=== PATIENT | female | born 1960 | race Caucasian/White ===

== ENCOUNTER 2019-03-19 05:26 | Inpatient (IN) | payer BC, OTHER ==
[2019-03-16 12:15] VITALS: BMI 21.5
[~2019-03-19] VITALS: Ht 157.5 cm; Wt 53.3 kg
[2019-03-19] VITALS (39 sets, daily range): BP systolic 69–141; BP diastolic 56–76; PULSE 54–77; RESP 14–27; Ht 157.5 cm; Wt 53.3 kg
[~2019-03-19 05:26] MED LIST: BUPIVACAINE 0.5% (SDV) 30 ML, morphine SULFATE (PF) 8 MG, EPINEPHrine 0.3 MG, KETOROLAC... IRR SCH
--- NOTE | 2019-03-19 05:49 | HPN ---
Date/Time of Note Date/Time of Note DATE: 03/19/19 TIME: 05:48 Interval H&P Admission Note Pt. seen H&P reviewed: No system changes REBECA VIERA MD Mar 19, 2019 05:49
--- NOTE | 2019-03-19 05:50 | OPR ---
Date/Time of Note Date/Time of Note DATE: 03/19/19 TIME: 05:49 Operative Report Procedure Date: Mar 19, 2019 Preoperative Diagnosis Right hip primary arthritis Postoperative Diagnosis Right hip primary arthritis Operation/Procedure Performed 1. Right total hip arthroplasty 2. Right hip injection of PRP solution Surgeon see signature line Manager [employer] Bandar Bunn MD Anesthesia Type: general Estimated Blood Loss: 100 - 150 ml's Transfusion none Specimen None Grafts/Implants See operative note Complications none Pt Condition Post Procedure: stable Disposition: PACU Procedure Description GENERATING STATION MECHANIC SURGEON: Bandar Bunn MD was asked to be present at my request as a result of the complexity associated with this procedure including positioning of the extremity, positioning of the instrumentation and protection of the neurovascular structures. In my opinion, the assistance offered by a medical surgical tech is insufficient and he should be compensated for his time. PROCEDURE IN DETAIL: Following the administration of general endotracheal anesthesia supplemented with a spinal anesthetic, the patient was placed in the supine position. The antecubital fossa on the right was prepped and 60 cc of blood were aspirated. Under sterile conditions, the blood was passed off to the training representative from the company who prepared the PRP solution. The left lower extremity was then prepped and draped in the usual sterile fashion. A mud jack nozzle worker radiograph was obtained for preliminary limb length and femoral size as well as acetabular size. Over the right hip, a lateral incision was then made exposing the tensor fascia the fascia was incised the tensor was retracted laterally and the vessels were cauterized. The anterior capsule was then identified and prepared. A capsulectomy was then performed and the femoral head was then evaluated. Severe arthritic changes were noted. A femoral head cut was then made in the appropriate degree of version and inclination. Following dislocation, severe arthritic changes were noted with ve ry certain severe cystic changes in the femoral head. The acetabulum was then exposed and a capsulectomy and labrectomy were co mpleted. The central portion was then entered and serially reamed up to the 47 mm size. A Depuy Point Clear cup which was 48 mm, with a standard liner was then fit into position with solid fixation. A 30 mm screw was used for additional fixation. Attention was then directed to the femur, the femur was exposed and prepared. The canal was entered and serially reamed up to the size 3, High offset. The femoral canal was then thoroughly irrigated and the PRP solution was then instilled into the femoral canal. A size 3 High offset Depuy Actis stem was then inserted with solid fixation. A 32 mm, +1.5 mm femoral head, which was ceramic was then inserted. The leg was taken through full range of motion with no evident instability. In addition, radiographs revealed excellent position with reproduction of the limb lengths within a millimeter. The wound was irrigated thoroughly. The wound was then closed in layers and a Prenio for the final cover. This was watertight. Estimated blood loss was procedure was 150 cc. Postoperative radiographs will be obtained in the recovery room. REBECA VIERA MD Mar 19, 2019 05:50
--- NOTE | 2019-03-19 05:51 | PDOCDIS ---
Discharge Instructions DIAGNOSIS Discharge Diagnosis Primary hip arthritis CONDITION [id number] Patient Condition: Ucyey4t Good HOME CARE INSTRUCTIONS: [id number] Diet Instructions: [id number] Regular ACTIVITY: [id number] Activity Restrictions: [id number] Rest between Activity Keep Limb Elevated [id number] Bathing Restrictions: [id number] Shower FOLLOW UP/APPOINTMENTS Follow-up Plan 2 weeks in the office SCHOOL/WORK RELEASE May return to School/Work with: With Restrictions School/Work Release Comment: No hip extension for 6 weeks REBECA VIERA MD Mar 19, 2019 05:51
[2019-03-19] MEDS ORDERED: ARMOUR PO (06:52)
[2019-03-19] MEDS ORDERED: VALA500T PO (06:52)
[2019-03-19] MEDS ORDERED: GABA-526 PO (06:52)
[2019-03-19] MEDS ORDERED: ESTR10TA6 VG (06:52)
[2019-03-19] MEDS ORDERED: PROG200C6 PO (06:52)
[2019-03-19] MEDS ORDERED: TRAZ150T65 PO (06:52)
[2019-03-19] MEDS ORDERED: CELE200C PO (06:52)
[2019-03-19] MEDS ORDERED: ESTR1TAB23 PO (06:52)
--- NOTE | 2019-03-19 06:53 | PREAC ---
Date/Time of Note Date/Time of Note DATE: 03/19/19 TIME: 06:51 Anesthesia Eval and Record Evaluation Time Pre-Procedure Interview DATE: 03/19/19 TIME: 06:51 Age 58 Sex female NPO: 8 hrs Preoperative diagnosis Rt hip arthritis Planned procedure Rt total hip replacement Past Medical History Past Medical History: Includes Musculoskeletal: Osteoarthritis Surgery & Anesthesia Issues No known issue Meds Anticoagulation: No Beta Drew within 24 hr: No Reason Beta Drew not given: Pt. not on B-Drew Current Medications Cefazolin Sodium/ Dextrose 50 ml @ 100 mls/hr PRE-OP ONCE IVPB ; Start 03/19/19 at 08:00; Stop 03/19/19 at 08:29 Tranexamic Acid 100 ml @ 200 mls/hr Pre-op ONCE IVPB ; Start 03/19/19 at 08:00; Stop 03/19/19 at 08:29 Sodium Chloride/ Tranexamic Acid INTRA-OP ONCE IRR ; Start 03/19/19 at 09:30; Stop 03/19/19 at 09:31 Bupivacaine HCl/ Morphine Sulfate/ Epinephrine/ Ketorolac Tromethamine/ Clonidine/Sodium Chloride/ Vancomycin HCl INTRA-OP IRR ; Start 03/18/19 at 09:30; Stop 03/19/19 at 12:00 Dexamethasone (Decadron) 2 mg PREOP ONCE PO Last administered on 03/19/19at 06:23; Admin Dose 2 MG; Start 03/19/19 at 08:00; Stop 03/19/19 at 08:01 Gabapentin (Neurontin) 300 mg ONCE ONCE PO Last administered on 03/19/19at 06:23; Admin Dose 300 MG; Start 03/19/19 at 08:00; Stop 03/19/19 at 08:01 Meds reviewed: Yes Allergies Coded Allergies: Sulfa (Sulfonamide Antibiotics) (Verified Allergy, Severe, RASH, 03/18/19) Allergies Reviewed: Yes Labs/Studies Labs Reviewed: Reviewed by anesthesiologist test: N/A Studies: ECG Pre-procedure Exam Last vitals Vital Signs Date Temp Pulse Resp B/P (MAP) Pulse Ox O2 O2 Flow FiO2 Time Delivery Rate 03/19/19 99.2 57 18 103/72 99 Room Air 06:31 (82) Airway: Adequate mouth opening, Adequate thyromental dist Mallampati: Mallampati II Teeth: Normal Lung: Normal Heart: Normal ASA Physical Status ASA physical status: 2 Emergency: None Planned Anesthetic General/MAC: LMA Neuraxial: Spinal Planned Pain Management Sub-arachniod narcotics, Parenteral pain med Pre-operative Attestations Prior to commencing anesthesia and surgery, the patient was re-evaluated, there was verification of: *The patient's identity *The results of appropriate recent lab work and preoperative vital signs *The above evaluation not changing prior to induction *Anesthetic plan, risk benefits, alternative and complications discussed with patient/family; questions answered; patient/family understands, accepts and wishes to proceed. LILLIAM MARTINEZ MD Mar 19, 2019 06:53
[2019-03-19] MEDS ORDERED: ROCURONIUM 50 MG INJ ONE (07:00)
[2019-03-19] MEDS ORDERED: MIDAZOLAM 1 MG/ML 2 ML INJ ONE (07:07)
[2019-03-19] MEDS ORDERED: FENTAnyl 50 MCG/ML VIAL ONE (07:07)
[2019-03-19] MEDS ORDERED: THROMBIN 5000 UNIT VIAL ONE (07:46)
[2019-03-19] MEDS ORDERED: POLYMYXIN/BACITRACIN 1L IRRIG ONE (07:47)
[2019-03-19] MEDS ORDERED: CA CHLORIDE 10% 10 ML SYRINGE ONE (07:47)
[2019-03-19] MEDS ORDERED: TRANEXAMIC ACID 1GM/100ML(PMX) 100 ML ONE (07:52)
[2019-03-19] MEDS ORDERED: DEXAMETHASONE 1 MG TAB PO ONE (08:00)
[2019-03-19] MEDS ORDERED: GABAPENTIN 300 MG CAP PO ONE (08:00)
[2019-03-19] MEDS ORDERED: CEFAZOLIN 2 GM/50 ML (PMX) 50 ML IVPB ONE (08:00)
[2019-03-19] MEDS ORDERED: TRANEXAMIC ACID 1GM/100ML(PMX) 100 ML IVPB ONE (08:00)
[2019-03-19] MEDS ORDERED: ONDANSETRON 4 MG INJ ONE (08:46)
[2019-03-19] MEDS ORDERED: METOCLOPRAMIDE 10 MG INJ ONE (08:46)
[2019-03-19] MEDS ORDERED: PROPOFOL 20 ML ONE (08:48)
[2019-03-19] MEDS ORDERED: CEFAZOLIN 1 GM INJ ONE (08:48)
[2019-03-19] MEDS ORDERED: LIDOCAINE 2% (SDV) 5 ML INJ ONE (08:48)
[2019-03-19] MEDS: LACTATED RINGER'S 1,000 ML IV SCH ×2 (08:55→18:55)
[2019-03-19] MEDS ORDERED: NACL 0.9% 3 ML SYG IV SCH (09:00)
[2019-03-19] MEDS ORDERED: ZOLPIDEM 5 MG TAB PO PRN (09:00)
[2019-03-19] MEDS ORDERED: MAGNESIUM HYDROXIDE 30ML CUP PO PRN (09:00)
[2019-03-19] MEDS ORDERED: ONDANSETRON 4 MG INJ IV PRN ×2 (09:00→09:30)
[2019-03-19] MEDS ORDERED: oxyCODONE 5 MG TAB PO PRN (09:00)
[2019-03-19] MEDS ORDERED: ARMOUR PO SCH (09:00)
[2019-03-19] MEDS ORDERED: HYDROmorphONE 1 MG/ML SYG IV PRN (09:00)
[2019-03-19] MEDS ORDERED: DIPHENHYDRAMINE 50 MG INJ IV PRN ×2 (09:00→09:30)
[2019-03-19] MEDS ORDERED: ESTRADIOL 1 MG TAB PO SCH (09:00)
--- NOTE | 2019-03-19 09:18 | PAC ---
Date/Time of Note Date/Time of Note DATE: 03/19/19 TIME: 09:17 Post-Anesthesia Notes Post-Anesthesia Note Last documented vital signs Vital Signs Date Temp Pulse Resp B/P (MAP) Pulse Ox O2 O2 Flow FiO2 Time Delivery Rate 03/19/19 99.2 57 18 103/72 99 Room Air 06:31 (82) Activity: WNL Respiratory function: WNL Cardiovascular function: WNL Mental status: Baseline Pain reasonably controlled: Yes Hydration appropriate: Yes Nausea/Vomiting absent: Yes Comments BP:112/56, P:62, Spo2:100%, T:98,4 LILLIAM MARTINEZ MD Mar 19, 2019 09:18
[2019-03-19] MEDS ORDERED: SOD CHLORIDE 0.9% 100 ML, TRANEXAMIC ACID 3,000 MG IRR ONE ×2 (09:30)
[2019-03-19] MEDS ORDERED: FENTAnyl 50 MCG/ML VIAL IV PRN (09:30)
[2019-03-19] MEDS ORDERED: MEPERIDINE 25 MG INJ IV PRN (09:30)
[2019-03-19] MEDS ORDERED: METOCLOPRAMIDE 10 MG INJ IV PRN (09:30)
[2019-03-19] MEDS ORDERED: HYDROmorphONE 1 MG/5 ML IV SYRINGE IV PRN ×2 (09:30)
[2019-03-19] MEDS: CEFAZOLIN 1 GM/50 ML (PMX) 50 ML IVPB SCH ×2 (10:12→16:42)
[2019-03-19] MEDS: ACETAMINOPHEN 1000MG/100ML IV 100 ML IVPB SCH ×2 (10:13→16:18)
[2019-03-19] MEDS: valACYclovir 500 MG TAB PO SCH (12:02)
[2019-03-19] MEDS: SENNA/DOCUSATE NA (8.6MG/50MG) TAB PO SCH ×2 (12:04→21:23)
[2019-03-19] MEDS: DEXAMETHASONE 2 MG TAB PO SCH ×2 (12:05→17:58)
[2019-03-19] MEDS: GABAPENTIN 300 MG CAP PO SCH (12:05)
[2019-03-19] MEDS: CELECOXIB 200 MG CAP PO SCH (12:05)
[2019-03-19] MEDS: oxyCODONE 5 MG TAB PO PRN ×3 (13:30→21:23)
[2019-03-19] MEDS ORDERED: traZODone 50 MG TAB PO SCH (21:00)
[2019-03-19] MEDS ORDERED: NON-FORMULARY/PATIENT OWN MED (Progesterone,Micronized* (Progesterone*) 200 MG) PO SCH (21:00)
[2019-03-20] MEDS: CEFAZOLIN 1 GM/50 ML (PMX) 50 ML IVPB SCH
[2019-03-20 00:08] VITALS: BP 100/59; PULSE 61; RESP 18
[2019-03-20] MEDS: ACETAMINOPHEN 1000MG/100ML IV 100 ML IVPB SCH ×2 (01:00→03:33)
[2019-03-20] MEDS: oxyCODONE 5 MG TAB PO PRN ×3 (03:33→13:02)
[2019-03-20] MEDS: LACTATED RINGER'S 1,000 ML IV SCH (04:55)
[2019-03-20] MEDS: DEXAMETHASONE 2 MG TAB PO SCH ×2 (05:35)
--- NOTE | 2019-03-20 06:04 | PN ---
Date/Time of Note Date/Time of Note DATE: 03/20/19 TIME: 06:03 Subjective Awake and alert with no complaints Objective Vitals Vital Signs Date Temp Pulse Resp B/P (MAP) Pulse Ox O2 O2 Flow FiO2 Time Delivery Rate 03/20/19 98.1 61 18 100/59 98 00:08 (73) 03/19/19 Room Air 11:19 03/19/19 8.0 09:08 Intake and Output 03/19/19 03/19/19 03/20/19 1515:00 23:00 07:00 IntakeIntake Total 1600 ml 150 ml 150 ml OutputOutput Total 500 ml 2600 ml BalanceBalance 1100 ml -2450 ml 150 ml Wound clean and dry. Neurologically intact. No signs of DVT. Results Result Diagram: 03/20/19 0443 Medications Medications Current Medications Celecoxib (Celebrex) 200 mg DAILY PO Last administered on 03/19/19at 12:05; Admin Dose 200 MG; Start 03/19/19 at 09:00 Gabapentin (Neurontin) 600 mg DAILY PO Last administered on 03/19/19at 12:05; Admin Dose 600 MG; Start 03/19/19 at 09:00 Trazodone HCl (Desyrel) 150 mg QHS PO Last administered on 03/19/19 21:23; Admin Dose 150 MG; Start 03/19/19 at 21:00 Valacyclovir HCl (Valtrex) 1,000 mg DAILY PO Last administered on 03/19/19at 12:02; Admin Dose 1,000 MG; Start 03/19/19 at 09:00 Miscellaneous Information 200 mg HS PO ; Start 03/19/19 at 21:00; Status UNV Miscellaneous Information 1 gm DAILY PO ; Start 03/19/19 at 09:00; Status UNV Lactated Ringer's 1,000 ml @ 100 mls/hr Q10H IV ; Start 03/19/19 at 08:55 Senna/Docusate Sodium (Senokot-S) 1 tab BID PO Last administered on 03/19/19 21:23; Admin Dose 1 TAB; Start 03/19/19 at 09:00 Simethicone (Mylicon) 80 mg TID PRN PO .GAS Last administered on 03/19/19at 22:22; Admin Dose 80 MG; Start 03/19/19 at 09:00 Magnesium Hydroxide (Milk Of Mag) 30 ml BID PRN PO .CONSTIPATION; Start 03/19/19 at 09:00 Magnesium Hydroxide (Milk Of Mag) 30 ml HS PO ; Start 03/21/19 at 21:00 Oxycodone HCl (Roxicodone) 15 mg Q4H PRN PO .PAIN; Start 03/19/19 at 09:00 Oxycodone HCl (Roxicodone) 10 mg Q4H PRN PO .PAIN Last administered on 03/20/19at 03:33; Admin Dose 10 MG; Start 03/19/19 at 09:00 Oxycodone HCl (Roxicodone) 5 mg Q4H PRN PO .PAIN Last administered on 03/19/19at 19:25; Admin Dose 5 MG; Start 03/19/19 at 09:00 Hydromorphone HCl (Dilaudid) 1 mg Q4H PRN IV .BREAKTHROUGH PAIN; Start 03/19/19 at 09:00 Ondansetron HCl (Zofran Inj) 4 mg Q6H PRN IV NAUSEA/VOMITING; Start 03/19/19 at 09:00 Diphenhydramine HCl (Benadryl) 25 mg Q6H PRN IV .PRURITUS; Start 03/19/19 at 09:00 Zolpidem Tartrate (Ambien) 10 mg HS PRN PO .INSOMNIA; Start 03/19/19 at 09:00 IV Flush (NS 3 ml) 3 ml per protocol IV ; Start 03/19/19 at 09:00 Aspirin (Ecotrin) 325 mg DAILY PO ; Start 03/20/19 at 09:00 Estradiol (Estraderm 0.1 Mg/24 Hr Patch) 1 patch SuTh@1800 TRANSDERM ; Start 03/22/19 at 18:00 VTE Prophylaxis Risk score (from Nsg)>0 risk: 6 SCD applied (from Nsg): Yes Lines/Catheters IV Catheter Type: Saline Lock Central line still needed: No Melgar in Place: No Assessment/Plan Assessment/Plan Assessment: Status post total hip replacement Plan: Begin PT this morning, discharge when independently ambulatory REBECA VIERA MD Mar 20, 2019 06:04
--- NOTE | 2019-03-20 06:04 | DS ---
Date/Time of Note Date/Time of Note DATE: 03/20/19 TIME: 06:04 Discharge Summary Admission/Discharge Info Admit Date/Time Mar 19, 2019 at 05:26 Discharge Date/Time 03/20/2019 Discharge Diagnosis Primary hip arthritis Patient Condition: Good Hospital Course Admitted, underwent uncomplicated procedure. Postop day 1 independently ambulatory discharged home Home Meds Reported Medications Estradiol (Yuvafem) 10 Mcg Tablet, 10 MCG VG, TAB 03/19/19 Gabapentin* (Gabapentin*) 600 Mg Tablet, 600 MG PO DAILY, #60 TAB 03/19/19 Estradiol* (Estrace*) 1 Mg Tablet, 0.0375 MG PO DAILY, TAB 03/19/19 Progesterone,Micronized* (Progesterone*) 200 Mg Capsule, 200 MG PO HS, CAP 03/19/19 Trazodone Hcl* (Trazodone Hcl*) 150 Mg Tablet, 150 MG PO QHS, #30 TAB 03/19/19 [[place]] No Conflict Check, 1 GM PO DAILY 03/19/19 Celecoxib* (Celebrex*) 200 Mg Capsule, 200 MG PO DAILY, CAP 03/19/19 valAcyclovir Hcl* (valACYclovir Hcl*) 500 Mg Tablet, 1000 MG PO DAILY, TAB 03/19/19 Follow-up Plan 2 weeks in the office Primary Care Provider Not On Staff Doctor Pending Labs Laboratory Tests Test 03/19/19 09:52 03/20/19 04:43 White Blood Count 6.7 10^3/ul (4.8-10.8) 9.0 10^3/ul (4.8-10.8) Red Blood Count 4.04 10^6/ul (4.20-5.40) 3.70 10^6/ul (4.20-5.40) Hemoglobin 13.1 g/dl (12.0-16.0) 12.1 g/dl (12.0-16.0) Hematocrit 39.9 % (37.0-47.0) 35.8 % (37.0-47.0) Mean Corpuscular Volume 98.8 fl (82.0-101.0) 96.8 fl (82.0-101.0) Mean Corpuscular 32.4 pg (29.0-33.0) 32.7 pg (29.0-33.0) Hemoglobin Mean Corpuscular 32.8 g/dl (32.0-37.0) 33.8 g/dl (32.0-37.0) Hemoglobin Concent Red Cell Distribution 12.6 % (11.5-14.5) 12.5 % (11.5-14.5) Width Platelet Count 197 10^3/UL (140-415) 183 10^3/UL (140-415) Mean Platelet Volume 10.9 fl (7.4-10.4) 11.2 fl (7.4-10.4) Immature Granulocytes % 0.600 % (0.001-0.429) 0.700 % (0.001-0.429) Neutrophils % 81.2 % (39.0-77.0) 81.9 % (39.0-77.0) Lymphocytes % 13.1 % (15.0-51.0) 8.5 % (15.0-51.0) Monocytes % 3.9 % (0.0-11.0) 8.4 % (0.0-11.0) Eosinophils % 0.6 % (0.0-7.0) 0.3 % (0.0-7.0) Basophils % 0.6 % (0.0-2.0) 0.2 % (0.0-2.0) Nucleated Red Blood Cells 0.0 /100WBC (0.0-0.0) 0.0 /100WBC (0.0-0.0) % Immature Granulocytes # 0.040 10^3/ul (0.0-0.031) 0.060 10^3/ul (0.0-0.031) Neutrophils # 5.4 10^3/ul (1.6-7.5) 7.3 10^3/ul (1.6-7.5) Lymphocytes # 0.9 10^3/ul (0.8-2.9) 0.8 10^3/ul (0.8-2.9) Monocytes # 0.3 10^3/ul (0.3-0.9) 0.8 10^3/ul (0.3-0.9) Eosinophils # 0.0 10^3/ul (0.0-0.5) 0.0 10^3/ul (0.0-0.5) Basophils # 0.0 10^3/ul (0.0-0.1) 0.0 10^3/ul (0.0-0.1) Nucleated Red Blood Cells 0.0 10^3/ul (0.0-0.0) 0.0 10^3/ul (0.0-0.0) # REBECA VIERA MD Mar 20, 2019 06:04
[2019-03-20 07:34] VITALS: BP 105/68; PULSE 78; RESP 19
[2019-03-20] MEDS: valACYclovir 500 MG TAB PO SCH (07:59)
[2019-03-20] MEDS: CELECOXIB 200 MG CAP PO SCH (07:59)
[2019-03-20] MEDS: GABAPENTIN 300 MG CAP PO SCH (07:59)
[2019-03-20] MEDS: SENNA/DOCUSATE NA (8.6MG/50MG) TAB PO SCH (07:59)
[2019-03-20] MEDS ORDERED: ASPIRIN (EC) 325 MG TAB PO SCH (09:00)
[2019-03-21] MEDS ORDERED: MAGNESIUM HYDROXIDE 30ML CUP PO SCH (21:00)
[2019-03-22] MEDS ORDERED: ESTRADIOL 0.1 MG/24 HR PATCH TRANSDERM SCH (18:00)
== END 2019-03-20 15:15 | disposition home or self-care (01) | DRG 470 ==
LOC: REC 05:26 → MS1 11:44
PROVIDERS: ADMIT Orthopaedic Surgery; ATTEND Orthopaedic Surgery
PROC: 0SR904A Replacement of Right Hip Joint with Ceramic on Polyethylene Synthetic Substitute, Uncemented, Open Approach (ICD-10-PCS; principal; 2019-03-19 07:00)
DX: M13.851 Other specified arthritis, right hip (principal); F41.9 Anxiety disorder, unspecified
CPT/HCPCS: 72170; 73530; 81001; 85025; 86999; 87086; 88304; 88311; 97116; 97161; C1713; C1776; J0131; J0171; J0690; J0735; J1885; J2250; J2274; J2405; J2765; J3010; J3370; J7120